=== PATIENT | male | born 1950 | race Caucasian/White ===

== ENCOUNTER 2021-07-27 16:59 | Emergency (ER) | payer MEDICARE, BC ==
[2021-07-27] MEDS ORDERED: Sodium Chloride 0.9% 10 ML Syringe FLUSH PRN (17:20)
[2021-07-27] MEDS ORDERED: Ondansetron 4 MG/2 ML SDV IVPUSH STA (17:20)
[2021-07-27] MEDS ORDERED: Morphine 4 MG/ML VIAL IVPUSH ONE (17:20)
[2021-07-27] MEDS ORDERED: Sodium Chloride 0.9% 1,000 ML IV SCH (17:30)
[2021-07-27] MEDS ORDERED: HYDROmorphone 2 MG/ML SDV IVPUSH STA (17:56)
[2021-07-27 18:09] LABS: ESTIMATED GFR > 60 (>60)
[2021-07-27] MEDS ORDERED: Iopamidol 755 MG/ML 150 ML Bottle IV ONE (18:31)
[2021-07-27] MEDS ORDERED: Iopamidol 755 Mg/ML 100 ML Bottle IV ONE (19:58)
== END 2021-07-27 21:30 ==
LOC: FB.ED 16:59
DX: K56.609 Unspecified intestinal obstruction, unspecified as to partial versus complete obstruction (principal); K46.9 Unspecified abdominal hernia without obstruction or gangrene; I48.91 Unspecified atrial fibrillation; Z95.0 Presence of cardiac pacemaker; Z88.2 Allergy status to sulfonamides
CPT/HCPCS: 36415; 71260; 74177; 80053; 81001; 82150; 83605; 83690; 85025; 85610; 85730; 93005; 96374; 96375; 99285; J1170; J2270; J2405; J7030; Q9967; 93010; 99283